=== PATIENT | male | born 2000 | race Caucasian/White ===

== ENCOUNTER 2022-09-12 10:02 | Emergency (ER) | payer SELFPAY ==
[~2022-09-12] VITALS: Ht 177.8 cm; Wt 65.9 kg
[2022-09-12 10:03] VITALS: TEMP 97.6
[2022-09-12 10:27] LABS: BASO # 0.1 K/mm3 (0.0-0.2); BASO % 0.8 % (0.0-2.0); EOS # 0.1 K/mm3 (0.0-0.7); EOS % 1.2 % (0.0-4.0); GRAN # 4.5 K/mm3 (1.4-6.5); GRAN % 62.5 % (42.2-75.2); HEMATOCRIT 42.4 % (42.0-52.0); LYMPH # 2.1 K/mm3 (1.2-3.4); LYMPH % 28.4 % (20.0-51.0); MEAN CELL VOLUME 90 fl (80.0-100.0); MEAN CORPUSCULAR HEMOGLOBIN 32 pg (27-31); MEAN CORPUSCULAR HGB CONC 35 g/dl (33.0-37.0); MEAN PLATELET VOLUME 10.3 fl (7.4-10.4); MONO # 0.5 K/mm3 (0.1-0.6); MONO % 6.8 % (1.7-9.3); PLATELET COUNT 203 K/mm3 (130-400); RED BLOOD COUNT 4.72 M/mm3 (4.20-5.60)
[2022-09-12 10:41] LABS: COLLECTION METHOD CLEAN CATCH
[2022-09-12 10:45] LABS: ALANINE AMINOTRANSFERASE 10 U/L (0-55); ALBUMIN 4.4 gm/dL (3.5-5.0); ALKALINE PHOSPHATASE 71 U/L (40-150); ANION GAP 14 mmol/L (7-16); AST,SGOT 16 U/L (5-34); BILIRUBIN,TOTAL 0.8 mg/dL (0.2-1.2); BLOOD UREA NITROGEN 10 mg/dL (9-21); CALCIUM 9.4 mg/dL (8.4-10.2); CARBON DIOXIDE 20 mmol/L (22-29); CHLORIDE 106 mmol/L (98-107); GLUCOSE 97 mg/dL (70-99); POTASSIUM 3.9 mmol/L (3.5-4.5); SODIUM 140 mmol/L (136-145); TOTAL PROTEIN 6.9 gm/dL (6.2-8.1)
[2022-09-12 10:46] LABS: ALCOHOL(ethanol),MEDICAL < 10 mg/dL (0-10)
[2022-09-12 10:53] LABS: MUCOUS Present (NOT PRESENT); SQUAMOUS EPITHELIAL None Seen /hpf (0-10); URINE BACTERIA None Seen /hpf (NONE SEEN); URINE RBC 0-2 /hpf (0-2)
[2022-09-12 11:05] LABS: TRICYCLIC ANTIDEPRESS URINE NEGATIVE; URINE APPEARANCE Clear (CLEAR/HAZY); URINE COLOR Yellow (YELLOW)
[2022-09-12 11:06] LABS: URINE BLOOD TRACE-INTACT (NEGATIVE); URINE GLUCOSE Negative (NEGATIVE); URINE KETONE 1+ (NEGATIVE); URINE NITRATE Negative (NEGATIVE); URINE PROTEIN(semi-quant) 1+ (NEGATIVE); URINE UROBILINOGEN 0.2 E.U/dL (0.2-1.0)
[2022-09-12] MEDS ORDERED: KEPPRA 500MG500 MG PO (11:20)
[2022-09-12 11:27] VITALS: BP 106/84; PULSE 65
== END 2022-09-12 11:34 | disposition home or self-care (01) ==
LOC: COL.ER 10:02
PROVIDERS: Emergency Medicine
DX: R56.9 Unspecified convulsions (principal); Z28.310 Unvaccinated for COVID-19
CPT/HCPCS: J1953; J7030